=== PATIENT | male | born 1985 | race Caucasian/White ===

== ENCOUNTER 2021-06-21 19:10 | Emergency (ER) | payer OTHER ==
[~2021-06-21] VITALS: Ht 182.8 cm; Wt 86.2 kg
[2021-06-21] MEDS ORDERED: IBUPROFEN600 MG PO (21:52)
[2021-06-21] MEDS ORDERED: Tobrex Ophth S2.5 ML OPH (21:52)
[2021-06-21] MEDS ORDERED: HYDROCODONE-AC1 EAC1 PO (21:52)
== END 2021-06-21 23:26 | disposition home or self-care (01) ==
LOC: ED 19:10
DX: T15.91XA Foreign body on external eye, part unspecified, right eye, initial encounter (principal); X58.XXXA Exposure to other specified factors, initial encounter; Y93.89 Activity, other specified; Y92.89 Other specified places as the place of occurrence of the external cause; Y99.8 Other external cause status